=== PATIENT | female | born 1960 | race Caucasian/White ===

== ENCOUNTER 2025-09-10 14:23 | Emergency (ER) | payer SELFPAY ==
[2025-09-10 14:35] LABS: Glucose - Point of Care 174 mg/dl (70-99)
[2025-09-10 14:36] VITALS: BP 0/0
[2025-09-10 14:40] LABS: Hematocrit 39.9 % (37.0-47.0); Hemoglobin 12.0 g/dL (12.0-16.0); Mean Corp Hgb Conc. 30.1 g/dL (33.0-37.0); Mean Corpuscular Volume 102.8 fL (81.0-99.0); Nucleated Red Blood Cells % 0.4 %; Platelet Count 195 10^3/uL (130-400); Red Cell Dist. Width 12.4 % (11.5-14.5)
--- NOTE | 2025-09-10 14:46 | ED.GENMED ---
History of Present Illness
General
Chief Complaint: CODE
Time Seen by Provider: 09/10/25 14:35
History of Present Illness
History of Present Illness:
Patient is a 65-year-old woman history of schizophrenia and anemia presenting to the emergency department with an unwitnessed cardiac arrest. Per medics patient was at a meeting at a [employer] event. Meeting ended and 15 minutes later somebody found
patient slumped over in her car. They started CPR. Medics arrived and continued CPR. they completed 5 rounds of epi. Initially she was asystolic then was PEA. They placed a IO. They intubated her. Her pupils were fixed and dilated
Phy Exam
Physical Exam
Physical Exam:
GENERAL: unresponsive and pulseless, CPR in progress
HEAD: normocephalic
EYES/EARS/NOSE/THROAT: pupils equal, intubated
NECK: normal inspection
RESPIRATORY: intubated, course breath sounds BL
CARDIOVASCULAR: pulseless
ABDOMEN/:distended, tympanic, no ecchymosis or lacerations
EXTREMITIES: no edema, clubbing, or deformities
NEUROLOGIC: GCS E1,VT,M1, unresponsive
SKIN: no obvious rashes
Course
Orders/Labs/Results
Orders:
Orders
09/10/25 14:33
Electrocardiogram (*1) Urgent
Reason for Study: Chest Pain
Cardiac Monitoring- Treatment ONCE
EKG- Treatment ONCE
IV Insert/Care/Rem.- Treatment PRN
O2 Therapy [RESP] Urgent
Titrate/Wean O2 to maintain O2 sat greater than (%): 90
Special Instructions: Maintain sats >/=90%
Pulse Ox/spot Check [RESP] Urgent
Quantity: 1
Special Instructions: ON ROOM AIR
09/10/25 14:34
Complete Blood Count/With Diff Urgent
Comprehensive Metabolic Panel Urgent
Troponin I Urgent
09/10/25 14:40
EPINEPHrine [Adrenalin 1 mg/10 ml] 2 mg .ROUTE .STK-MED ONE
Abnormal Lab Results
09/10/25
14:34
WBC 11.8 H 10^3/uL
(4.8-10.8)
RBC 3.88 L 10^6/uL
(4.20-5.40)
MCV 102.8 H fL
(81.0-99.0)
MCHC 30.1 L g/dL
(33.0-37.0)
MPV 10.7 H fL
(7.4-10.4)
Abs Immat Gran (auto) 0.4 H 10^3/uL
(0-0.05)
Absolute Neuts (auto) 6.8 H 10^3/uL
(1.4-6.5)
Absolute Lymphs (auto) 3.7 H 10^3/uL
(1.2-3.4)
Absolute Monos (auto) 0.9 H 10^3/uL
(0.1-0.6)
Immature Gran % 3.1 H %
(0-0.5)
Sodium 134 L mmol/L
(135-145)
Chloride 97 L mmol/L
(98-107)
Carbon Dioxide 18 L mmol/L
(22-30)
Creatinine 1.2 H mg/dL
(0.6-1.0)
Glucose 166 H mg/dl
(70-99)
AST 166 H U/L
(14-36)
Total Protein 5.6 L g/dl
(6.3-8.2)
Albumin 3.4 L g/dl
(3.5-5.0)
POC Glucose 174 H mg/dl
(70-99)
09/10/25 14:34
09/10/25 14:34
MDM/Problems Addressed
Differential Diagnosis Includes:
Upon arrival to the emergency department the patient was immediately placed in a monitored bed, IV access was obtained, and defibrillator pads were placed on the patient.
The initial rhythm on the monitor was PEA. CPR was continued for additional 3 rounds with PEA on the monitor. 2 rounds of epinephrine were given. Bedside ultrasound did not show signs of pericardial effusion or tension pneumothorax or saddle PE.
Accu-Chek was normal.
Differentials of asystole reviewed during code including hypoxia (100% oxygen via ETT tube), hypothermia, hypo/hyperkalemia, hypomagnesemia, hydrogen ion acidosis (hypovolemia (IV fluids running). Trauma (none reported, no evidence of on phys exam),
toxins (no history), tension pneumothorax (bilateral breath sounds present), cardiac tamponade (no pericardial effusion noted on ultrasound), acute myocardial infarction and pulmonary embolism.
Patient never obtained ROSC. Cardiac standstill noted on bedside US. Time of 1436. Family notified.
*Pulse Oximetry
Patient hypoxic: yes
*Critical Care Note
Total Time (30-74mins, 75-104mins- exclusive of procedures): 37
comment:
Critical care statement: A total of 37 minutes of critical care time was provided for this patient. This includes management of unstable vital signs, evaluation of the patient at bedside, reviewing the patient's pertinent medical records, ordering
and reviewing studies, arranging urgent treatment with development of a management plan, evaluating patient's response to treatment, frequent reassessment, and discussion with consultants. This time was separate from time utilized to perform the
aforementioned documented procedures.
ED Attending Note
-
Portions of this chart may have been created with voice recognition software.� Occasional wrong word or��sound alike� substitutions may have occurred due to the inherent limitations of voice recognition software.
Discharge Plan
Departure
Referrals:
UNKNOWN,PT [Family Provider]
Interventions
Interventions:
*Nursing Disposition Last Done: 09/10/25 15:08
Discharge Date and Time
Print Language: SLOVAK
[2025-09-10 14:54] LABS: AST (SGOT) 166 U/L (14-36); Albumin 3.4 g/dl (3.5-5.0); Alkaline Phosphatase 106 U/L (38-126); Blood Urea Nitrogen 10 mg/dl (7-17); Calcium 9.3 mg/dl (8.4-10.2); Carbon Dioxide 18 mmol/L (22-30); Chloride 97 mmol/L (98-107); Glucose 166 mg/dl (70-99); Potassium 4.7 mmol/L (3.5-5.1); Sodium 134 mmol/L (135-145); Total Protein 5.6 g/dl (6.3-8.2); eGFR 50.23
[2025-09-10 15:18] LABS: Troponin I 0.112 ng/ml
[2025-09-10 15:36] LABS: ALT (SGPT) 96 U/L (0-35)
== END 2025-09-10 14:36 | disposition expired ==
LOC: EMR 14:23
PROVIDERS: EMERGENCY PHYSICIAN Student in an Organized Health Care Education/Training Program
DX: I46.9 Cardiac arrest, cause unspecified (principal); F20.9 Schizophrenia, unspecified
CPT/HCPCS: 99291; 92950; 80053; 82962; 84484; 85025